=== PATIENT | male | born 1965 | race Caucasian/White ===

== ENCOUNTER 2022-02-05 13:13 | Emergency (ER) | payer BC ==
[2022-02-05] MEDS ORDERED: Lidocaine 1% PF 5 ML VIAL ONE (13:19)
[2022-02-05] MEDS ORDERED: cefTRIAXone\\ROCEPHIN 1 GM VIAL ONE (14:07)
== END 2022-02-05 15:00 | disposition home or self-care (01) ==
LOC: ERS 13:13
DX: N48.30 Priapism, unspecified (principal); E11.9 Type 2 diabetes mellitus without complications; Z79.899 Other long term (current) drug therapy
CPT/HCPCS: 96365; 96372; J0696; J2370

== ENCOUNTER 2022-08-15 16:14 | Emergency (ER) | payer BC ==
[2022-08-15] MEDS ORDERED: Lidocaine 1% PF 5 ML VIAL ONE (17:28)
== END 2022-08-15 18:21 | disposition home or self-care (01) ==
LOC: ERS 16:14
DX: N48.33 Priapism, drug-induced (principal); T50.995A Adverse effect of other drugs, medicaments and biological substances, initial encounter
CPT/HCPCS: 99283

== ENCOUNTER 2024-05-29 09:26 | Inpatient (IN) | payer BC ==
[2024-05-29 10:41] LABS: #Basophils Less than 0.03 10x3/uL (0.0-0.2); #Eosinophils Less than 0.03 10x3/uL (0.0-0.7); %Basophils 0.1 % (0.0-1.0); %Lymphocytes 8.4 % (21.0-51.0); %Neutrophils 83.7 % (42.0-75.0); Hematocrit 48.6 % (42.0-52.0); Hemoglobin 17.4 g/dL (14.0-18.0); Mean Corpuscular HGB CONC 35.8 g/dL (32.0-36.0); Mean Corpuscular Hemoglobin 29.1 pg (27.0-31.0); Mean Corpuscular Volume 81.4 fL (78.0-98.0); Mean Platelet Volume 10.7 fL (7.4-10.4); Platelet Count 226 10x3/uL (130-400); RBC Distribution Width 13.2 % (11.5-14.5); Red Blood Cell (RBC) Count 5.97 mill/uL (4.70-6.10)
[2024-05-29 11:05] LABS: ALT (SGPT) 20 U/L (8-55); AST (SGOT) 14 U/L (5-34); Albumin 4.5 g/dL (3.5-5.0); Alkaline Phosphatase 79 U/L (40-110); Anion Gap 18 mmol/L (10-20); BUN (Urea Nitrogen) 27 mg/dL (8.4-25.7); Bilirubin, Total 1.4 mg/dL (0.2-1.2); Calc. Creatinine Clearance 0 mL/min (70-130); Calcium 9.9 mg/dL (7.8-10.44); Carbon Dioxide 24 mmol/L (22-29); Chloride 99 mmol/L (98-107); Estimated GFR 46; Globulin 2.7 g/dL (2.4-3.5); Glucose 344 mg/dL (70-105); Lipase 27 U/L (8-78); Protein, Total 7.2 g/dL (6.0-8.3); Sodium 137 mmol/L (136-145)
[2024-05-29 11:29] LABS: Troponin I 0.024 ng/mL (< 0.028)
[2024-05-29] MEDS ORDERED: Aspirin Chewable 81 MG TAB ONE (12:00)
[2024-05-29] MEDS ORDERED: hydrALAZINE 20 MG/ML VIAL ONE (12:17)
[2024-05-29] MEDS ORDERED: Ondansetron PF 4 MG/2 ML Vial IVP PRN (12:39)
[2024-05-29] MEDS ORDERED: Loperamide HCl 2 MG CAP PO PRN ×2 (12:39)
[2024-05-29] MEDS ORDERED: Dextrose 50% Abboject 50 ML SYRINGE SLOW IVP PRN (12:41)
[2024-05-29] MEDS ORDERED: Glucagon 1 MG/ML KIT IM PRN (12:41)
[2024-05-29] MEDS ORDERED: Dextrose 5% in Water 1,000 ML IV PRN (12:41)
[2024-05-29] MEDS ORDERED: Diazepam 5 MG TAB PO PRN (12:42)
[2024-05-29 13:39] LABS: Troponin I 0.014 ng/mL (< 0.028)
[2024-05-29] MEDS ORDERED: Diazepam 5 MG TAB ONE (13:40)
[2024-05-29] MEDS: Sodium Chloride 0.9% 1,000 ML IV SCH (13:42)
[2024-05-29] MEDS: Diazepam 5 MG TAB PO PRN (13:42)
[2024-05-29 19:16] VITALS: BMI 30.3
[2024-05-29] MEDS: Insulin Lispro 100 UNIT/ML 10 ML VIAL SC PRN (21:49)
[2024-05-30 05:43] LABS: #Basophils 0.04 10x3/uL (0.0-0.2); %Basophils 0.3 % (0.0-1.0); %Eosinophils 0.2 % (0.0-10.0); %Lymphocytes 14.4 % (21.0-51.0); %Neutrophils 76.4 % (42.0-75.0); Hematocrit 46.2 % (42.0-52.0); Hemoglobin 15.9 g/dL (14.0-18.0); Mean Corpuscular HGB CONC 34.4 g/dL (32.0-36.0); Mean Corpuscular Volume 84.2 fL (78.0-98.0); Mean Platelet Volume 10.9 fL (7.4-10.4); Platelet Count 208 10x3/uL (130-400); RBC Distribution Width 13.3 % (11.5-14.5); Red Blood Cell (RBC) Count 5.49 mill/uL (4.70-6.10)
[2024-05-30 06:14] LABS: ALT (SGPT) 17 U/L (8-55); AST (SGOT) 18 U/L (5-34); Albumin 4.1 g/dL (3.5-5.0); Alkaline Phosphatase 69 U/L (40-110); Anion Gap 14 mmol/L (10-20); BUN (Urea Nitrogen) 28 mg/dL (8.4-25.7); Bilirubin, Total 1.5 mg/dL (0.2-1.2); Calc. Creatinine Clearance 94 mL/min (70-130); Calcium 9.4 mg/dL (7.8-10.44); Carbon Dioxide 27 mmol/L (22-29); Chloride 100 mmol/L (98-107); Estimated GFR 56; Globulin 2.6 g/dL (2.4-3.5); Glucose 257 mg/dL (70-105); Potassium 3.8 mmol/L (3.5-5.1); Protein, Total 6.7 g/dL (6.0-8.3); Sodium 137 mmol/L (136-145)
[2024-05-30] MEDS: Acetaminophen 500 MG TAB PO SCH (06:20)
[2024-05-30 08:23] LABS: Hemoglobin A1c 8.7 % (4.0-6.0)
[2024-05-30] MEDS ORDERED: hydrALAZINE 20 MG/ML VIAL SLOW IVP PRN (09:44)
[2024-05-30] MEDS ORDERED: Moisturizing Cream (Eucerin) 113 GM JAR TOP PRN (09:44)
[2024-05-30] MEDS ORDERED: Sodium Chloride 0.65% Nasal 44 ML BOT EA NARE PRN (09:44)
[2024-05-30] MEDS ORDERED: Loratadine 10 MG TAB PO PRN (09:44)
[2024-05-30] MEDS ORDERED: Artificial Tear Ophth Sol 15 ML BOT EA EYE PRN (09:44)
[2024-05-30] MEDS ORDERED: Benzonatate 100 MG CAP PO PRN (09:44)
[2024-05-30] MEDS ORDERED: Benzocaine/Menthol 1 LOZ LOZ PO PRN (09:44)
[2024-05-30 10:30] LABS: INR-International Normal Ratio 1.1; PTT 27.4 sec (22.9-36.1); Prothrombin Time 13.7 sec (12.0-14.7)
[2024-05-30 10:54] LABS: Cardiac Risk 4.7 (Less than 4.5)
[2024-05-30] MEDS: Amlodipine 5 MG TAB PO SCH (11:11)
[2024-05-30] MEDS: Aspirin 325 MG TAB PO SCH (11:11)
[2024-05-30] MEDS: Insulin Glargine 30 UNITS/0.3 ML VIAL SC SCH (11:12)
[2024-05-30] MEDS: Carvedilol 6.25 MG TAB PO SCH ×2 (11:12→17:32)
[2024-05-30] MEDS ORDERED: Acetaminophen 325 MG TAB PO PRN (12:15)
[2024-05-30] MEDS: Meclizine HCl 25 MG TAB PO PRN (12:51)
[2024-05-30] MEDS: Insulin Lispro 100 UNIT/ML 10 ML VIAL SC PRN (17:31)
[2024-05-30] MEDS: Atorvastatin Calcium 40 MG TAB PO SCH (20:11)
[2024-05-31 08:54] LABS: Bacteria/HPF None Seen HPF (None Seen); Bilirubin Negative (Negative); Blood, Urine Negative (Negative); Clarity Clear (Clear); Glucose, Urine (Dipstick) 500 mg/dL (Negative); Ketone, Urine Trace mg/dL (Negative); Leukocyte Negative Leu/uL (Negative); Nitrite Negative (Negative); Protein, Urine (Dipstick) Negative (Neg-Trace); RBC/HPF 0-3 HPF (0-3); Specific Gravity, Urine 1.016 (1.002-1.036); Squamous Epithelial None Seen HPF (0-3); Urobilinogen Normal mg/dL (Less than 2); WBC/HPF 0-3 HPF (0-3)
[2024-05-31] MEDS: Insulin Glargine 30 UNITS/0.3 ML VIAL SC SCH (10:31)
[2024-05-31] MEDS: Enoxaparin 40 MG (0.4 mL) SYRINGE SC SCH (10:31)
[2024-05-31] MEDS: Amlodipine 5 MG TAB PO SCH (10:31)
[2024-05-31] MEDS: Aspirin Chewable 81 MG TAB PO SCH (10:31)
[2024-05-31 13:26] VITALS: BMI 30.3
[2024-05-31] MEDS: Labetalol HCl 100 MG/20 ML VIAL SLOW IVP PRN (14:08)
[2024-05-31] MEDS: Insulin Lispro 100 UNIT/ML 10 ML VIAL SC PRN (20:37)
[2024-06-01 05:52] LABS: Anion Gap 13 mmol/L (10-20); BUN (Urea Nitrogen) 17 mg/dL (8.4-25.7); Calc. Creatinine Clearance 109 mL/min (70-130); Calcium 9.5 mg/dL (7.8-10.44); Carbon Dioxide 28 mmol/L (22-29); Chloride 101 mmol/L (98-107); Estimated GFR 67; Glucose 223 mg/dL (70-105); Potassium 3.7 mmol/L (3.5-5.1); Sodium 138 mmol/L (136-145)
[2024-06-01] MEDS: Amlodipine 5 MG TAB PO SCH (08:22)
[2024-06-01 13:24] VITALS: BP 171/116; TEMP 98.5
== END 2024-06-01 13:45 | DRG 65 ==
LOC: ERS 09:26 → ERHOLD 12:05 → OBS 18:54 → OBSVTOIN 05-30 16:27
PROVIDERS: ADMIT Internal Medicine; ATTEND Hospitalist
DX: I63.81 Other cerebral infarction due to occlusion or stenosis of small artery (principal); N17.9 Acute kidney failure, unspecified; E78.1 Pure hyperglyceridemia; R73.03 Prediabetes; E86.0 Dehydration; H53.2 Diplopia; I10 Essential (primary) hypertension; R27.0 Ataxia, unspecified; Z98.890 Other specified postprocedural states
CPT/HCPCS: 36415; 36416; 70450; 70551; 71045; 80048; 80053; 80061; 81001; 83036; 83690; 84443; 84484; 85025; 85610; 85730; 87428; 93005; 93306; 93880; 96374; G0378; J0360; J1650; J1815; J7030